=== PATIENT | male | born 1950 ===

== ENCOUNTER 2024-02-20 06:00 | Day surgery (SDC) | payer OTHER ==
[2024-02-13 09:13] LABS: HEMATOCRIT 41.8 % (39.0-48.0); HEMOGLOBIN 14.4 g/dL (13-16.00); MEAN CELL VOLUME 86.5 fL (80.0-100.00); MEAN CORPUSCULAR HEMOGLOBIN 29.8 pg (27.00-32.0); MEAN CORPUSCULAR HGB CONC 34.4 g/dl (32.0-36.0); PLATELET COUNT 204 K/uL (150-450); RED BLOOD COUNT 4.83 M/uL (4.00-6.00); RED CELL DISTRIBUTION WIDTH 14.6 % (11.5-14.5)
[2024-02-13 09:29] LABS: PH,URINE 5.5 (5.0-8.0); URINE APPEARANCE Clear; URINE BILIRRUBIN Negative (NEGATIVE); URINE BLOOD Trace; URINE COLOR Yellow; URINE GLUCOSE Negative (NEGATIVE); URINE LEUKOCYTE Negative; URINE NITRATE Negative; URINE PROTEIN Negative (NEGATIVE); URINE UROBILINOGEN 0.2 E.U./dl
[2024-02-13 09:31] LABS: URINE BACTERIA 18.8 uL (0.0-1933); URINE EPITHELIAL CELLS 2.9 uL (0.0-38.8); URINE RBC 10.8 uL (0.0-20.8); URINE WBC 6.6 uL (0.0-23.2)
[2024-02-13 09:32] LABS: INR 1.01; PROTHROMBIN TIME 10.6 SECONDS (9.0-11.5)
[2024-02-13 09:44] LABS: ALBUMIN 4.1 gm/dL (3.4-5.0); BILIRUBIN TOTAL 1.14 mg/dL (0.3-1.2); CALCIUM 10.1 mg/dL (8.5-10.1); CREATININE SERUM 1.44 mg/dL (0.70-1.30); GFR 47.82; GLOBULINA 3.4 G/DL (2.4-3.5); POTASSIUM 4.96 mEq/L (3.5-5.1); TOTAL PROTEIN 7.5 gm/dL (6.4-8.2)
[2024-02-13 10:21] LABS: T4 TOTAL 8.88 UG/DL (4.5-12.1); TSH 1.58 uIU/mL (0.358-3.74)
[~2024-02-20] VITALS: Ht 167.6 cm; Wt 78.0 kg
[~2024-02-20 06:00] MED LIST: ACID REDUCER20 M1 PO; AMLODIPINE BESYL5 MG PO; ATORVASTATIN CA10 MG PO; COZAAR50 MG PO; GLIPIZIDE XL2.5 MG PO; LEVO-T100 MCG PO; METFORMIN HCL1000 M2 PO
[2024-02-20] MEDS ORDERED: CEFAZOLIN SODIUM 1,000 MG VIAL ONE (09:23)
[2024-02-20] MEDS ORDERED: KETOROLAC TROMETHAMINE 30 MG VIAL ONE (09:23)
[2024-02-20] MEDS ORDERED: LIDOCAINE HCL 1%/EPINEPHRINE 20ML VIAL IJ ONE ×2 (09:23→10:30)
[2024-02-20] MEDS ORDERED: KETOROLAC TROMETHAMINE 30 MG VIAL IM ONE (10:30)
[2024-02-20] MEDS ORDERED: KETOROLAC TROMETHAMINE 30 MG VIAL IV ONE (10:30)
[2024-02-20] MEDS ORDERED: CEFAZOLIN SODIUM 1,000 MG VIAL IV ONE (10:30)
== END 2024-02-20 14:40 | disposition home or self-care (01) ==
LOC: CIR.AMB 06:00
PROVIDERS: ATTEND Orthopaedic Surgery
DX: M75.121 Complete rotator cuff tear or rupture of right shoulder, not specified as traumatic (principal); M24.111 Other articular cartilage disorders, right shoulder; M75.21 Bicipital tendinitis, right shoulder; I10 Essential (primary) hypertension; E11.9 Type 2 diabetes mellitus without complications